=== PATIENT | female | born 1955 | race Caucasian/White ===

== ENCOUNTER 2018-01-06 12:07 | Day surgery (SDC) | payer MEDICARE, OTHER ==
[~2018-01-06] VITALS: Ht 160 cm; Wt 70.3 kg
--- NOTE | ~2018-01-06 | OP ---
PATIENT NAME: MEENU SPARKS MEDICAL RECORD: [id number] :57 LOCATION:[facility] ADMISSION DATE: SURGEON: BO REYES MD DATE OF OPERATION: 01/06/2018 PROCEDURE: Colonoscopy. REFERRING PHYSICIAN: Cristel Lowe APN INDICATIONS: Ms. Sparks is a delightful 62-year-old woman with a history of a benign brain tumor (1978), pancreatic cancer status post partial pancreatectomy (2001), and RFA to the liver. Stool was Hemoccult positive. She has had no symptoms of abdominal pain, melena, hematochezia, or abnormal weight loss. CBC today shows a white blood cell count 5.9, hemoglobin 13.9, hematocrit 40.9, MCV 91.9, platelets of 358,000. Potassium is 4.5. She presents for outpatient colonoscopy. PREMEDICATIONS: Total IV anesthesia (propofol 260 mg). INSTRUMENT: [employer] video colonoscope, pediatric. PROCEDURE AND FINDINGS: After receiving informed consent, Ms. Sparks was placed in left lateral decubitus position and sedated as per anesthesia. After achieving an adequate level of sedation, digital rectal exam was performed that showed a few external hemorrhoidal tags. No fissure or fistulas, normal sphincter tone, no palpable rectal masses. Colonoscope was introduced per rectally and advanced to the cecum. The cecum, IC valve, and appendiceal orifice were identified. As the colonoscope was withdrawn, careful inspection was made of the [place] of the colon. Overall, mucosa had normal vascular and fold pattern. No masses, ulcers, or diverticula were appreciated on the exam. No polyps were seen. Retroflexion in the rectum showed mild internal hemorrhoids. A good prep was present. Ms. Sparks tolerated the procedure well, no immediate complications. Withdrawal time was 6 minutes. ASSESSMENT: 1. Mild internal hemorrhoids. 2. Hemoccult positive stool. RECOMMENDATIONS: 1. High-fiber diet. 2. Screening colonoscopy in 5-7 years. 3. Screening colonoscopy in 5 years. 4. EGD to rule out upper GI etiology of Hemoccult positive stool. TRANSINT:[id number] Voice Confirmation ID: [id number] DOCUMENT ID: [id number] CC: Cristel Lowe APN OPERATIVE REPORT [id number] AVERY PSARKSBO LOTT MD at [id number] CC: [id number] DICTATION DATE: 01/06/18 1440 MIMEOGRAPH OPERATOR: 01/06/18 1449 [facility] 01/06/18 [place] [id number] [place] [id number]
[2018-01-06 13:08] VITALS: BP 128/65; Ht 160 cm; Wt 70.3 kg
[2018-01-06 13:16] LABS: HEMATOCRIT 40.9 % (36.0-48.0); HEMOGLOBIN 13.9 g/dL (12-16); MCH 31.2 pg (26.0-34.0); MCV 91.9 fL (80.0-100.0); MEAN PLATELET VOLUME 10.8 fL (7.4-10.4); RBC 4.45 10x6/uL (4.00-5.40); RDW 14.4 % (11.5-14.5); WBC 5.9 10x3/uL (4.8-10.8)
== END 2018-01-06 15:40 | disposition home or self-care (01) ==
LOC: D.OPS 12:07
PROVIDERS: Internal Medicine Gastroenterology
DX: K64.8 Other hemorrhoids (principal); K64.4 Residual hemorrhoidal skin tags; Z01.812 Encounter for preprocedural laboratory examination